=== PATIENT | male | born 1950 | race Caucasian/White ===

== ENCOUNTER 2022-01-03 10:17 | Emergency (ER) | payer MEDICARE ==
[2022-01-03] MEDS ORDERED: Zofran 4 MG/2 ML VIAL IV ONE (10:31)
[2022-01-03 10:45] LABS: Absolute Neutrophil Ct (ANC) 9.13 x10^3/uL (1.4-6.9); Basophil (Absolute #) 0.02 x10^3/uL (0-0.4); Eosinophil (Absolute #) 0 x10^3/uL (0-0.5); Hematocrit 32.6 % (42-50); Hemoglobin 10.3 g/dL (12.5-18.0); Lymphocyte (Absolute #) 0.55 x10^3/uL (1.0-4.6); Lymphocytes % 5.3 % (24.0-44.0); Mean Cell Volume 90.3 fL (78-100); Mean Corpuscular Hemoglobin 28.5 pg (26-32); Mean Corpuscular Hgb Concent. 31.6 g/dL (32-36); Mean Platelet Volume 12.7 fL (7.5-11.0); Monocyte (Absolute #) 0.39 x10^3/uL (0.0-1.3); Monocytes % 3.8 % (0.0-12.0); Neutrophil % 88.6 % (36.0-66.0); Platelet Count 111 x10^3/uL (150-450); Red Blood Count 3.61 x10^6/uL (4.1-5.6); Red Cell Distribution Width 17.2 % (11.5-14.0); White Blood Count 10.3 x10^3/uL (4.0-10.5)
[2022-01-03 10:58] LABS: ALBUMIN 3.1 g/dL (3.5-5.0); ANION GAP 14.9 MEQ/L (5-15); BILIRUBIN,TOTAL 1.3 mg/dL (0.2-1.3); Calcium 8.6 mg/dL (8.4-10.2); Creatinine 1 2.01 mg/dL (0.66-1.25); EST GLOMERULAR FILTRATION RATE 35.2 ML/MIN; Potassium 4.8 mmol/L (3.5-5.1); Total Protein 7.7 g/dL (6.3-8.2)
[2022-01-03 10:59] LABS: INR 1.3 (0.8-3.0); PROTIME 13.5 SECONDS (9.4-12.5); PTT 34.7 SECONDS (25.1-36.5)
[2022-01-03] MEDS ORDERED: Zofran 4 MG/2 ML VIAL ONE (11:02)
[2022-01-03] MEDS ORDERED: Sodium Chloride 0.9% 500 ML 500 ML IV ONE ×2 (11:04→11:05)
[2022-01-03 11:20] LABS: INFLUENZA A NEGATIVE (NEGATIVE); INFLUENZA B NEGATIVE (NEGATIVE); RESPIRATORY SYNCTIAL VIRUS NEGATIVE (Negative); SARS-CoV-2 Xpert Express NEGATIVE (NEGATIVE)
[2022-01-03 11:25] LABS: Appearance CLOUDY (CLEAR); Bilirubin NEGATIVE (NEGATIVE); Dipstick done @ ? MAIN LAB; Glucose NEGATIVE (NEGATIVE); Ketones NEGATIVE (NEGATIVE); Nitrite NEGATIVE (NEGATIVE); Ph 5.5 (5-6); Protein,Urine Dip >=300 (Negative); RBC MODERATE Ery/ul (0-5); Urobilinogen 1 mg/dL (0-1)
[2022-01-03] MEDS ORDERED: TYLENOL EXTRA STRENGTH 500 MG PO ONE (11:30)
[2022-01-03] MEDS ORDERED: TYLENOL SUSPENSION 160 MG/5 ML ONE (11:31)
[2022-01-03 11:39] LABS: Bacteria MODERATE /HPF (NEGATIVE); Epithelial Cells RARE /HPF (FEW); Mucus SLIGHT /HPF (NEGATIVE); WBC >100 /HPF (0-5)
[2022-01-03 11:43] LABS: Urine Cultured Indicated? YES
[2022-01-03] MEDS ORDERED: TYLENOL SUSPENSION 160 MG/5 ML PO ONE (11:44)
[2022-01-03] MEDS ORDERED: Sodium Chloride 0.9% 1000 ML 1,000 ML ONE ×5 (11:49→15:09)
[2022-01-03] MEDS ORDERED: Sodium Chloride 0.9% 1000 ML 1,000 ML IV STA ×4 (11:49→14:46)
[2022-01-03] MEDS ORDERED: PIPERACILLIN/TAZOBACTAM 3.375 GM in Sodium Chloride 100ML MINI-BAG PLUS 100 ML IV ONE (11:50)
[2022-01-03] MEDS ORDERED: PIPERACILLIN/TAZOBACTAM IV ONE (11:51)
[2022-01-03] MEDS ORDERED: Sodium Chloride 100ML MINI-BAG PLUS 100 ML IV ONE (11:51)
--- NOTE | 2022-01-03 12:07 | ERPHSYRPT ---
- History of Present Illness Source: patient, EMS Exam Limitations: other (Pt w advanced dementia and poor report from NH) Physician History: 71 yo wm from [place] w 2 day h/o N/V/D/R sided facial droop. NH history is very poor, and pt is oriented x0. Pt is febrile upon arrival, alert, oriented x0, and has a great airway. Timing/Duration: other (2 days) Severity: moderate Modifying Factors: Improves With: nothing Associated Symptoms: nausea, vomiting, malaise, rash, weakness, No shortness of breath, No heartburn, No diaphoresis, No cough, No chills, No chest pain, No fever, No headaches, No loss of appetite, No syncope, No seizure Allergies/Adverse Reactions: No Known Drug Allergies Allergy (Unverified 01/03/22 11:44) Home Medications: Amino Acids/Protein Hydrolys [Provide Gold Regular Liquid] 30 ml PO DAILY 01/03/22 [History] Apixaban [Eliquis 5 mg Tablet] 1 ea BID 01/03/22 [History] Donepezil HCl 1 ea DAILY 01/03/22 [History] Furosemide 40 mg [Lasix 40 MG] 40 mg PO DAILY 01/03/22 [History] Insulin Aspart [Novolog] 100 unit SQ AC 01/03/22 [History] Insulin Detemir [Levemir] 66 units DAILY 01/03/22 [History] Magnesium Hydroxide 30 ml [Milk of Magnesia 30 ml] 30 ml PO DAILY 01/03/22 [History] Memantine HCl 10 mg PO BID 01/03/22 [History] Metoprolol Succinate 25 mg Xl* [Toprol-Xl 25MG Tablets] 1 ea BID 01/03/22 [History] Multivitamin [Multi-Vitamin Daily] 1 ea DAILY 01/03/22 [History] Omeprazole 1 ea BID 01/03/22 [History] Ondansetron [Ondansetron Odt] 1 ea Q4-6HPRN PRN 01/03/22 [History] Phenol [Oral Relief] 177 ml MM Q4HWA 01/03/22 [History] Potassium Chloride 10 meq PO BID 01/03/22 [History] Sertraline HCl [Zoloft] 1 ea DAILY 01/03/22 [History] Zinc Oxide [Diaper Rash Ointment] 56 gm TP BID 01/03/22 [History] - Review of Systems All Other Systems: Unable due to dementia - Past Medical History Neurological History: Alzheimer's Disease Cardiac History: Arrhythmia, Congestive Heart Failure, Hypertension Respiratory History: COPD Endocrine Medical History: Diabetes Type II GI Medical History: GERD History: Renal Disease Psycho-Social History: Depression, Other Other Medical History: quamous cell skin ca,schizo - Past Surgical History Past Surgical History: Yes Cardiac: Cardiac Catheterization, Pacemaker - Social History Drug Use: none Significant Family History: no pertinent family hx - Nursing Vital Signs Nursing Vital Signs: Initial Vital Signs Temperature 100.5 F 01/03/22 10:20 Pulse Rate 87 01/03/22 10:20 Respiratory Rate 28 H 01/03/22 10:20 Blood Pressure 102/51 01/03/22 10:20 O2 Sat by Pulse Oximetry 93 L 01/03/22 10:20 Pain Scale Pain Intensity 4 Febrile/Borderline sats/Mildly tachyneic - Physical Exam General Appearance: mild distress Eye Exam: PERRL/EOMI, eyes nml inspection Ears, Nose, Throat Exam: normal ENT inspection, TMs normal, tonsillar exudate Neck Exam: normal inspection, non-tender, supple, No meningismus, No mass, No Brudzinski, No Kernig's Respiratory Exam: crackles/rales (Rales R base >L base) Cardiovascular Exam: regular rate/rhythm, normal heart sounds, murmur (2/6 RHONDA) Gastrointestinal/Abdomen Exam: soft, normal bowel sounds, No tenderness Back Exam: normal inspection, normal range of motion Extremity Exam: normal range of motion, pelvis stable Neurologic Exam: alert, cooperative, 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, depressed mood/affect, facial droop (R facial droop), No oriented x 3 Skin Exam: normal color, warm, other (Multiple excoriated lesions on dorsal forearms) SpO2 Interpretation: normal SpO2: 95 O2 Delivery: Room Air - Course Nursing assessment & vital signs reviewed: Yes EKG Interpreted by Me: RATE (Paced/rate 93/IVCD) - CT Exams Head CT Interpretation: Tele-radiologist Report (Nothing acute) Chest CT Interpretation: Tele-radiologist Report (R pleural effusion/minimal L pleural effusion/RLL atelectasis vs pneumonia) Abdomen/Pelvis CT Interpretation: Tele-radiologist Report (Possible portal vein thrombosis/cirrhotic) Ordered Tests: Active Orders 24 hr Category Date Time Status EKG-ER Only STAT Care 01/03/22 10:24 Completed IV Insertion-2nd Peripheral STAT Care 01/03/22 13:54 Completed Oxygen-ED Only Nasal Cannula 2 lpm Care 01/03/22 14:56 Completed ABDOMEN AND PELVIS W/0 CONTRAS [CT] Stat Exams 01/03/22 14:28 Taken CHEST WITHOUT CONTRAST [CT] Stat Exams 01/03/22 10:33 Taken HEAD WITHOUT CONTRAST [CT] Stat Exams 01/03/22 11:07 Taken BLOOD CULTURE Stat Lab 01/03/22 10:21 Received CBC W DIFF Stat Lab 01/03/22 10:45 Completed CMP Stat Lab 01/03/22 10:45 Completed CULTURE,URINE Stat Lab 01/03/22 10:57 Received Lactic Acid Stat Lab 01/03/22 10:39 Completed Lactic Acid Stat Lab 01/03/22 12:40 Completed PROTIME WITH INR Stat Lab 01/03/22 10:45 Completed PTT Stat Lab 01/03/22 10:45 Completed TROPONIN Q4H Lab 01/03/22 10:45 Completed TROPONIN Q4H Lab 01/03/22 13:34 Completed UA W/RFX CULTURE Stat Lab 01/03/22 10:57 Completed Medication Summary Discontinued Medications Generic Name Dose Route Start Last Admin Trade Name Freq PRN Reason Stop Dose Admin Acetaminophen 1,000 mg 01/03/22 11:30 01/03/22 11:46 Acetaminophen 500 Mg Tablet PO 01/03/22 11:31 Not Given STAT ONE Acetaminophen Confirm 01/03/22 11:31 Acetaminophen 160 Mg/5 Ml Bottle Administered 01/03/22 11:32 Dose 160 mg .ROUTE .STK-MED ONE Acetaminophen 1,000 mg 01/03/22 11:44 01/03/22 11:45 Acetaminophen 160 Mg/5 Ml Bottle PO 01/03/22 11:45 1,000 mg STAT ONE Administration Sodium Chloride 500 mls @ 500 mls/hr 01/03/22 11:04 01/03/22 12:06 Sodium Chloride 0.9% 500 Ml IV 01/03/22 12:03 Infused .Q1H ONE Infusion Sodium Chloride Confirm 01/03/22 11:05 Sodium Chloride 0.9% 500 Ml Administered 01/03/22 11:06 Dose 500 mls @ ud IV .STK-MED ONE Sodium Chloride 1,000 mls @ 999 mls/hr 01/03/22 11:49 01/03/22 13:14 Sodium Chloride 0.9% 1000 Ml IV 01/03/22 12:49 Infused .Q1H1M STA Infusion Piperacillin Sod/Tazobactam 100 mls @ 200 mls/hr 01/03/22 11:50 01/03/22 11:52 Sod 3.375 gm/ Sodium Chloride IV 01/03/22 12:19 200 mls/hr STAT ONE Administration Sodium Chloride Confirm 01/03/22 11:49 Sodium Chloride 0.9% 1000 Ml Administered 01/03/22 11:50 Dose 1,000 mls @ ud .ROUTE .STK-MED ONE Sodium Chloride Confirm 01/03/22 11:51 Sodium Chloride 100ml Mini-Bag Plus Administered 01/03/22 11:52 Dose 100 mls @ ud IV .STK-MED ONE Sodium Chloride 1,000 mls @ 999 mls/hr 01/03/22 13:49 01/03/22 14:45 Sodium Chloride 0.9% 1000 Ml IV 01/03/22 14:49 Infused .Q1H1M STA Infusion Vancomycin HCl 1 gm in 200 mls @ 125 mls/hr 01/03/22 13:50 01/03/22 15:33 Vancomycin 1 Gram/200 Ml Bag IV 01/03/22 15:25 Infused STAT ONE Infusion Sodium Chloride Confirm 01/03/22 13:48 Sodium Chloride 0.9% 1000 Ml Administered 01/03/22 13:49 Dose 1,000 mls @ ud .ROUTE .STK-MED ONE Vancomycin HCl Confirm 01/03/22 13:50 Vancomycin 1 Gram/200 Ml Bag Administered 01/03/22 13:51 Dose 1 gm in 200 mls @ ud IV .STK-MED ONE Sodium Chloride Confirm 01/03/22 14:21 Sodium Chloride 0.9% 1000 Ml Administered 01/03/22 14:22 Dose 1,000 mls @ ud .ROUTE .STK-MED ONE Sodium Chloride 1,000 mls @ 999 mls/hr 01/03/22 14:23 01/03/22 15:42 Sodium Chloride 0.9% 1000 Ml IV 01/03/22 15:23 Infused .Q1H1M STA Infusion Norepinephrine/Dextrose Confirm 01/03/22 14:41 Norepinephrine 8 Mg/250 Ml-D5w Administered 01/03/22 14:42 Dose 8 mg in 250 mls @ ud IV .STK-MED ONE Norepinephrine/Dextrose 8 mg in 250 mls @ 15 mls/hr 01/03/22 14:41 01/03/22 15:15 Norepinephrine 8 Mg/250 Ml-D5w IV 02/02/22 14:40 12 mcg/min .[id number] PRN 22.5 mls/hr HYPOTENSION Titration Protocol 8 MCG/MIN Sodium Chloride 1,000 mls @ 999 mls/hr 01/03/22 14:46 01/03/22 15:36 Sodium Chloride 0.9% 1000 Ml IV 01/03/22 15:46 Infused .Q1H1M STA Infusion Sodium Chloride Confirm 01/03/22 14:45 Sodium Chloride 0.9% 1000 Ml Administered 01/03/22 14:46 Dose 1,000 mls @ ud .ROUTE .STK-MED ONE Sodium Chloride Confirm 01/03/22 15:09 Sodium Chloride 0.9% 1000 Ml Administered 01/03/22 15:10 Dose 1,000 mls @ ud .ROUTE .STK-MED ONE Sodium Chloride 1,000 mls @ 125 mls/hr 01/03/22 15:30 01/03/22 15:23 Sodium Chloride 0.9% 1000 Ml IV 02/02/22 15:29 125 mls/hr .Q8H YANE Administration Ondansetron HCl 4 mg 01/03/22 10:31 01/03/22 11:04 Ondansetron Hcl 4 Mg/2 Ml Vial IV 01/03/22 10:32 4 mg STAT ONE Administration Ondansetron HCl Confirm 01/03/22 11:02 Ondansetron Hcl 4 Mg/2 Ml Vial Administered 01/03/22 11:03 Dose 4 mg .ROUTE .STK-MED ONE Piperacillin Sod/Tazobactam Sod Confirm 01/03/22 11:51 Piperacillin/Tazobactam Sodium 3.375 Gm Vial Administered 01/03/22 11:52 Dose 3.375 gm IV .STK-MED ONE Lab/Rad Data: Laboratory Result Diagrams 01/03/22 10:45 01/03/22 10:45 Laboratory Results 01/03/22 01/03/22 01/03/22 Range/Units 13:34 12:40 10:57 WBC (4.0-10.5) x10^3/uL RBC (4.1-5.6) x10^6/uL Hgb (12.5-18.0) g/dL Hct (42-50) % MCV (78-100) fL MCH (26-32) pg MCHC (32-36) g/dL RDW (11.5-14.0) % Plt Count (150-450) x10^3/uL MPV (7.5-11.0) fL Gran % (36.0-66.0) % Immature Gran % (Auto) (0.00-0.4) % Nucleat RBC Rel Count (0.00-0.1) % Eos # (Auto) (0-0.5) x10^3/uL Immature Gran # (Auto) (0.00-0.03) x10^3u/L Absolute Lymphs (auto) (1.0-4.6) x10^3/uL Absolute Monos (auto) (0.0-1.3) x10^3/uL Absolute Nucleated RBC (0.00-0.01) x10^3u/L Lymphocytes % (24.0-44.0) % Monocytes % (0.0-12.0) % Eosinophils % (0.00-5.0) % Basophils % (0.0-0.4) % Absolute Granulocytes (1.4-6.9) x10^3/uL Basophils # (0-0.4) x10^3/uL PT (9.4-12.5) SECONDS INR (0.8-3.0) APTT (25.1-36.5) SECONDS Sodium (137-145) mmol/L Potassium (3.5-5.1) mmol/L Chloride (98-107) mmol/L Carbon Dioxide (22-30) mmol/L Anion Gap (5-15) MEQ/L BUN (9-20) mg/dL Creatinine (0.66-1.25) mg/dL Estimated GFR ML/MIN Glucose (74-106) mg/dL Lactic Acid 5.6 H (0.4-2.0) Calcium (8.4-10.2) mg/dL Total Bilirubin (0.2-1.3) mg/dL AST (17-59) U/L ALT (0-50) U/L Alkaline Phosphatase (38-126) U/L Troponin I 0.251 H* (0.000-0.034) ng/mL Serum Total Protein (6.3-8.2) g/dL Albumin (3.5-5.0) g/dL Urinalys Dipstick Clnc MAIN LAB Urine Color YELLOW (YELLOW) Urine Appearance CLOUDY (CLEAR) Urine pH 5.5 (5-6) Ur Specific [place] 1.020 (1.005-1.025) POC Urine Protein Conf >=300 (Negative) Urine Ketones NEGATIVE (NEGATIVE) Urine Nitrite NEGATIVE (NEGATIVE) Urine Bilirubin NEGATIVE (NEGATIVE) Urine Urobilinogen 1 (0-1) mg/dL Urine Leukocytes MODERATE (NEGATIVE) Urine WBC (Auto) >100 (0-5) /HPF Urine RBC (Auto) 11-15 (0-2) /HPF U Epithel Cells (Auto) RARE (FEW) /HPF Urine Bacteria (Auto) MODERATE (NEGATIVE) /HPF Urine RBC MODERATE (0-5) Ulises/ul Urine Mucus (Auto) SLIGHT (NEGATIVE) /HPF Ur Culture Indicated? YES Urine Glucose NEGATIVE (NEGATIVE) mg/dL Influenza Type A Ag (NEGATIVE) Influenza Type B Ag (NEGATIVE) RSV (PCR) (Negative) SARS-CoV-2 (PCR) (NEGATIVE) 01/03/22 01/03/22 01/03/22 Range/Units 10:45 10:45 10:45 WBC (4.0-10.5) x10^3/uL RBC (4.1-5.6) x10^6/uL Hgb (12.5-18.0) g/dL Hct (42-50) % MCV (78-100) fL MCH (26-32) pg MCHC (32-36) g/dL RDW (11.5-14.0) % Plt Count (150-450) x10^3/uL MPV (7.5-11.0) fL Gran % (36.0-66.0) % Immature Gran % (Auto) (0.00-0.4) % Nucleat RBC Rel Count (0.00-0.1) % Eos # (Auto) (0-0.5) x10^3/uL Immature Gran # (Auto) (0.00-0.03) x10^3u/L Absolute Lymphs (auto) (1.0-4.6) x10^3/uL Absolute Monos (auto) (0.0-1.3) x10^3/uL Absolute Nucleated RBC (0.00-0.01) x10^3u/L Lymphocytes % (24.0-44.0) % Monocytes % (0.0-12.0) % Eosinophils % (0.00-5.0) % Basophils % (0.0-0.4) % Absolute Granulocytes (1.4-6.9) x10^3/uL Basophils # (0-0.4) x10^3/uL PT 13.5 H (9.4-12.5) SECONDS INR 1.30 (0.8-3.0) APTT 34.7 (25.1-36.5) SECONDS Sodium (137-145) mmol/L Potassium (3.5-5.1) mmol/L Chloride (98-107) mmol/L Carbon Dioxide (22-30) mmol/L Anion Gap (5-15) MEQ/L BUN (9-20) mg/dL Creatinine (0.66-1.25) mg/dL Estimated GFR ML/MIN Glucose (74-106) mg/dL Lactic Acid (0.4-2.0) Calcium (8.4-10.2) mg/dL Total Bilirubin (0.2-1.3) mg/dL AST (17-59) U/L ALT (0-50) U/L Alkaline Phosphatase (38-126) U/L Troponin I 0.246 H* (0.000-0.034) ng/mL Serum Total Protein (6.3-8.2) g/dL Albumin (3.5-5.0) g/dL Urinalys Dipstick Clnc Urine Color (YELLOW) Urine Appearance (CLEAR) Urine pH (5-6) Ur Specific [place] (1.005-1.025) POC Urine Protein Conf (Negative) Urine Ketones (NEGATIVE) Urine Nitrite (NEGATIVE) Urine Bilirubin (NEGATIVE) Urine Urobilinogen (0-1) mg/dL Urine Leukocytes (NEGATIVE) Urine WBC (Auto) (0-5) /HPF Urine RBC (Auto) (0-2) /HPF U Epithel Cells (Auto) (FEW) /HPF Urine Bacteria (Auto) (NEGATIVE) /HPF Urine RBC (0-5) Ulises/ul Urine Mucus (Auto) (NEGATIVE) /HPF Ur Culture Indicated? Urine Glucose (NEGATIVE) mg/dL Influenza Type A Ag NEGATIVE (NEGATIVE) Influenza Type B Ag NEGATIVE (NEGATIVE) RSV (PCR) NEGATIVE (Negative) SARS-CoV-2 (PCR) NEGATIVE (NEGATIVE) 01/03/22 01/03/22 01/03/22 Range/Units 10:45 10:45 10:39 WBC 10.3 (4.0-10.5) x10^3/uL RBC 3.61 L (4.1-5.6) x10^6/uL Hgb 10.3 L (12.5-18.0) g/dL Hct 32.6 L (42-50) % MCV 90.3 (78-100) fL MCH 28.5 (26-32) pg MCHC 31.6 L (32-36) g/dL RDW 17.2 H (11.5-14.0) % Plt Count 111 L (150-450) x10^3/uL MPV 12.7 H (7.5-11.0) fL Gran % 88.6 H (36.0-66.0) % Immature Gran % (Auto) 2.1 H (0.00-0.4) % Nucleat RBC Rel Count 0.0 (0.00-0.1) % Eos # (Auto) 0 (0-0.5) x10^3/uL Immature Gran # (Auto) 0.22 H (0.00-0.03) x10^3u/L Absolute Lymphs (auto) 0.55 L (1.0-4.6) x10^3/uL Absolute Monos (auto) 0.39 (0.0-1.3) x10^3/uL Absolute Nucleated RBC 0.00 (0.00-0.01) x10^3u/L Lymphocytes % 5.3 L (24.0-44.0) % Monocytes % 3.8 (0.0-12.0) % Eosinophils % 0.0 (0.00-5.0) % Basophils % 0.2 (0.0-0.4) % Absolute Granulocytes 9.13 H (1.4-6.9) x10^3/uL Basophils # 0.02 (0-0.4) x10^3/uL PT (9.4-12.5) SECONDS INR (0.8-3.0) APTT (25.1-36.5) SECONDS Sodium 134 L (137-145) mmol/L Potassium 4.8 (3.5-5.1) mmol/L Chloride 103 (98-107) mmol/L Carbon Dioxide 21 L (22-30) mmol/L Anion Gap 14.9 (5-15) MEQ/L BUN 49 H (9-20) mg/dL Creatinine 2.01 H (0.66-1.25) mg/dL Estimated GFR 35.2 ML/MIN Glucose 164 H (74-106) mg/dL Lactic Acid 4.1 H (0.4-2.0) Calcium 8.6 (8.4-10.2) mg/dL Total Bilirubin 1.30 (0.2-1.3) mg/dL AST 160 H (17-59) U/L ALT 59 H (0-50) U/L Alkaline Phosphatase 132 H (38-126) U/L Troponin I (0.000-0.034) ng/mL Serum Total Protein 7.7 (6.3-8.2) g/dL Albumin 3.1 L (3.5-5.0) g/dL Urinalys Dipstick Clnc Urine Color (YELLOW) Urine Appearance (CLEAR) Urine pH (5-6) Ur Specific [place] (1.005-1.025) POC Urine Protein Conf (Negative) Urine Ketones (NEGATIVE) Urine Nitrite (NEGATIVE) Urine Bilirubin (NEGATIVE) Urine Urobilinogen (0-1) mg/dL Urine Leukocytes (NEGATIVE) Urine WBC (Auto) (0-5) /HPF Urine RBC (Auto) (0-2) /HPF U Epithel Cells (Auto) (FEW) /HPF Urine Bacteria (Auto) (NEGATIVE) /HPF Urine RBC (0-5) Ulises/ul Urine Mucus (Auto) (NEGATIVE) /HPF Ur Culture Indicated? Urine Glucose (NEGATIVE) mg/dL Influenza Type A Ag (NEGATIVE) Influenza Type B Ag (NEGATIVE) RSV (PCR) (Negative) SARS-CoV-2 (PCR) (NEGATIVE) - Progress Progress Note: 01/03/22 14:16 01/03/22 15:58 Pt w obvious sepsis due to UTI/possible pneumonia NS fluid boluses started to meet 30ml/Kg sepsis protocol/Pt received 4500ml in total 3.375mg IV Zosyn after blood cultures Levophed drip started due to hypotensive to fluid boluses Vancomycin 1gm IV Dr. Velasco wants pt transferred due to facial droop/Elevated troponin/Renal failure Pt accepted by Dr. Ballard at [facility] Systolic BP>90 when EMS assumed care at time of transfer 01/03/22 16:13 CT ab-pelvis result slightly before discharge w possible portal vein thrombosis. Pt on Eliquis. Counseled pt/family regarding: lab results, diagnosis, need for follow-up, rad results - Departure Departure Disposition: Transfer Clinical Impression: UTI (urinary tract infection), Sepsis, Pneumonia, Renal failure, Elevated troponin, Portal vein thrombosis Condition: Critical Critical Care Time: Yes Critical Care Time(excluding separately billable procedures): Critical 135-164 mins Referrals: ENVIVE,ENVIVE [Primary Care Provider] - Follow up/PCP as directed
[2022-01-03] MEDS ORDERED: VANCOMYCIN 1 GRAM/200 ML BAG 1 GM/200 ML PIGGYBACK IV ONE ×2 (13:50)
[2022-01-03] MEDS ORDERED: NOREPINEPHRINE 8 MG/250 ML-D5W 8 MG/250 ML PLAST..BAG IV PRN (14:41)
[2022-01-03] MEDS ORDERED: NOREPINEPHRINE 8 MG/250 ML-D5W 8 MG/250 ML PLAST..BAG IV ONE (14:41)
[2022-01-03 14:58] VITALS: PULSE 76
[2022-01-03 15:08] VITALS: BP 94/58
[2022-01-03] MEDS ORDERED: Sodium Chloride 0.9% 1000 ML 1,000 ML IV SCH (15:30)
[2022-01-03 16:12] VITALS: O2SAT 95
--- NOTE | 2022-01-03 19:35 | XRAY ---
Indication: Right facial droop. Multiple contiguous axial images obtained through the head without contrast. Comparison: None Age-appropriate global atrophy, mild periventricular degenerative micro-ischemia bilaterally, and old right occipital lobe infarct. No acute intracranial hemorrhage, abnormal extra-axial fluid collection, or mass effect. Fourth ventricle is midline without hydrocephalus. Bony calvarium intact. Visualized paranasal sinuses and mastoid air cells are clear. Impression: Nonacute senile brain with old right occipital lobe infarct. Comment: Preliminary interpretation made by [facility]. No critical discrepancy.
--- NOTE | 2022-01-03 19:41 | XRAY ---
Indication: Fever, nausea, and vomiting. Multiple contiguous axial images obtained through the chest without contrast. Comparison: None Study degraded by respiration artifact throughout. Moderate right and tiny left effusions with right lung compressive atelectasis. Posterior right lower lobe demonstrates oval opacity measuring 4.1 x 6.1 cm in greatest axial dimension either round atelectasis versus consolidating airspace disease. Posterior right upper lobe demonstrates patchy airspace disease. 1.3 cm left upper lobe calcified granuloma. Heart not enlarged with left AICD. Aorta minimally arteriosclerotic without aneurysm. Tiny left hilar calcified nodes. No pathologic mediastinal lymphadenopathy. Bony thorax demonstrates osteopenia and flowing osteophytes throughout the spine. CT abdomen/pelvis reported separately. Impression: 1. Respiration artifact. 2. Posterior right upper lobe patchy airspace disease. Also posterior right lower lobe round atelectasis versus consolidating airspace disease. 3. Moderate right and tiny left effusions with right lung compressive atelectasis. 4. Incidental chronic bony findings and old granulomatous disease. Comment: Preliminary interpretation made by [facility]. No critical discrepancy.
--- NOTE | 2022-01-03 19:48 | XRAY ---
Indication: Fever, nausea, and vomiting. Multiple contiguous axial images obtained through the abdomen and pelvis without contrast. Comparison: None CT chest reported separately. Study slightly degraded by respiration artifact throughout. Noncontrasted stomach and bowel loops appear nonobstructed. Scattered descending and sigmoid diverticulosis without diverticulitis. Cirrhotic liver with tiny fluid along both colic gutters. Posterior right lobe liver demonstrate subtle 1.6 cm hypodense lesion. No walled off fluid collection or free air. Marked splenomegaly measuring 19.2 cm. Tiny hepatic/splenic aspect granulomas. Previous cholecystectomy. Ryder balloon catheter empties urinary bladder. Incidental bilateral penile implants. Remaining pancreas, adrenal glands, kidneys, and ureters are unremarkable for noncontrast exam. Mild scattered aortoiliac calcifications without AAA. Osseous structures intact with osteopenia, mild/moderate degenerative spondylosis throughout the thoracolumbar spine and bilateral L5 spondylolysis without listhesis. Impression: 1. Respiration artifact. 2. Cirrhotic liver with tiny ascites and marked splenomegaly. 3. Indeterminant 1.6 cm right lobe hypodense lesion. Outside comparison studies recommended if available. If not CT liver or MRI with contrast exam may yield further information. 4. Incidental colonic diverticulosis, arteriosclerotic disease, Ryder balloon catheter, bilateral penile implants, and chronic bony findings. Comment: Preliminary interpretation made by [facility]. No critical discrepancy.
== END 2022-01-03 15:35 | disposition short-term general hospital (02) ==
LOC: ED 10:17
DX: A41.9 Sepsis, unspecified organism (principal); N39.0 Urinary tract infection, site not specified; R65.20 Severe sepsis without septic shock; N17.9 Acute kidney failure, unspecified; J18.9 Pneumonia, unspecified organism; R77.8 Other specified abnormalities of plasma proteins; I81 Portal vein thrombosis; R11.2 Nausea with vomiting, unspecified; R19.7 Diarrhea, unspecified; R29.810 Facial weakness; I11.0 Hypertensive heart disease with heart failure; I50.9 Heart failure, unspecified; J44.9 Chronic obstructive pulmonary disease, unspecified; E11.9 Type 2 diabetes mellitus without complications; Z79.01 Long term (current) use of anticoagulants; Z79.4 Long term (current) use of insulin; Z79.899 Other long term (current) drug therapy; Z20.828 Contact with and (suspected) exposure to other viral communicable diseases
CPT/HCPCS: 0241U; 36000; 36415; 51702; 70450; 71250; 74176; 80053; 81015; 83605; 84484; 85025; 85610; 85730; 87040; 87086; 93005; 93041; 94760; 96361; 96365; 96367; 96368; 96374; 99285; 99291; J2405; A9270-GY; J3370

== ENCOUNTER 2022-01-26 10:46 | Emergency (ER) | payer MEDICARE ==
--- NOTE | 2022-01-26 11:01 | ERPHSYRPT ---
- History of Present Illness Time Seen by Provider: 01/26/22 10:54 Source: patient Exam Limitations: no limitations Physician History: EMS called to [facility] to transport a patient in cardiac arrest. Upon their arrival patient was pulseless. CPR initiated. Supraglottic airway applied. Per report patient is a hospice patient. However patient reportedly had second thoughts of hospice so the details regarding hospice were being worked out. Per report patient last seen normal at approximately 30 minutes prior to cardiac arrest. Family notified. Timing/Duration: today Severity: severe Modifying Factors: Improves With: nothing Associated Symptoms: other (Unresponsive. Therefore unable to verify associated symptoms) Allergies/Adverse Reactions: No Known Drug Allergies Allergy (Unverified 01/03/22 11:44) Home Medications: Amino Acids/Protein Hydrolys [Provide Gold Regular Liquid] 30 ml PO DAILY 12/15 06/06 [History] Apixaban [Eliquis 5 mg Tablet] 1 ea BID 01/03/22 [History] Donepezil HCl 1 ea DAILY 01/03/22 [History] Furosemide 40 mg [Lasix 40 MG] 40 mg PO DAILY 01/03/22 [History] Insulin Aspart [Novolog] 100 unit SQ AC 01/03/22 [History] Insulin Detemir [Levemir] 66 units DAILY 01/03/22 [History] Magnesium Hydroxide 30 ml [Milk of Magnesia 30 ml] 30 ml PO DAILY 01/03/22 [History] Memantine HCl 10 mg PO BID 01/03/22 [History] Metoprolol Succinate 25 mg Xl* [Toprol-Xl 25MG Tablets] 1 ea BID 01/03/22 [History] Multivitamin [Multi-Vitamin Daily] 1 ea DAILY 01/03/22 [History] Omeprazole 1 ea BID 01/03/22 [History] Ondansetron [Ondansetron Odt] 1 ea Q4-6HPRN PRN 01/03/22 [History] Phenol [Oral Relief] 177 ml MM Q4HWA 01/03/22 [History] Potassium Chloride 10 meq PO BID 01/03/22 [History] Sertraline HCl [Zoloft] 1 ea DAILY 01/03/22 [History] Zinc Oxide [Diaper Rash Ointment] 56 gm TP BID 01/03/22 [History] Hx Tetanus, Diphtheria Vaccination/Date Given: (unsure) Hx Influenza Vaccination/Date Given: (unsure) Hx Pneumococcal Vaccination/Date Given: (unsure) Travel Risk - Vaccine Status Have you recieved a Covid-19 vaccination: Yes Color Printer Operator: Unknown - Vaccination Dates Dates if Unknown: ? - Review of Systems All Other Systems: Unable due to condition - Past Medical History Neurological History: Alzheimer's Disease Cardiac History: Arrhythmia, Congestive Heart Failure, Hypertension Respiratory History: COPD Endocrine Medical History: Diabetes Type II GI Medical History: GERD History: Renal Disease Psycho-Social History: Depression, Other Other Medical History: quamous cell skin ca,schizo - Past Surgical History Past Surgical History: Yes Cardiac: Cardiac Catheterization, Pacemaker - Social History Smoking Status: Unknown if ever smoked Exposure to second hand smoke: No Drug Use: none Patient Lives Alone: No Significant Family History: no pertinent family hx - Nursing Vital Signs Nursing Vital Signs: Initial Vital Signs Pulse Rate 0 L 01/26/22 10:54 Respiratory Rate 0 L 01/26/22 10:54 - Physical Exam General Appearance: other (Unresponsive) Eye Exam: other (Pupils fixed dilated. No corneal reflex.) Ears, Nose, Throat Exam: normal ENT inspection, TMs normal, pharynx normal, moist mucous membranes Neck Exam: normal inspection Respiratory Exam: other (Patient with a supraglottic airway. Breath sounds equal bilaterally.) Cardiovascular Exam: other (Patient pulseless/PEA.) Gastrointestinal/Abdomen Exam: soft Back Exam: other (Unable to assess back at this time due to condition. Patient in cardiac arrest CPR in progress) Extremity Exam: other (2+ bilateral lower extremity pitting edema. No distal pulses observed. No signs of trauma) Neurologic Exam: other (Patient unresponsive) Skin Exam: other (Pale mottled skin) Lymphatic Exam: No adenopathy SpO2 Interpretation: airway management int. O2 Delivery: Ambu-Bag - Course Nursing assessment & vital signs reviewed: Yes Ordered Tests: Active Orders 24 hr Category Date Time Status Standby STAT RT 01/26/22 11:01 Completed - Progress Progress: unchanged Progress Note: Patient arrived in cardiac arrest. CPR in progress. Patient had a supraglottic airway. Ventilation oxygenation via [id number] patient unresponsive. Patient had no gag reflex during supraglottic airway administration. Patient has no corneal reflex. Patient's body is pale mottled. Chest compressions continued via Uzair machine. Respiratory therapy at bedside managing airway. Family notified the ED shortly thereafter that patient is not to be resuscitated. Resuscitation efforts discontinued. Patient declared at 1052. Time of 1052 Portions of this note were created with voice recognition technology. There may be grammatical, spelling, punctuation or sound alike errors 01/26/22 10:57 Counseled pt/family regarding: diagnosis - Departure Departure Disposition: Clinical Impression: Cardiovascular collapse, Cardiac arrest Condition: Critical Care Time: No Referrals: ENVIVE,ENVIVE [Primary Care Provider] - Follow up/PCP as directed
[2022-01-26 11:02] VITALS: PULSE 0
== END 2022-01-26 11:50 | disposition expired ==
LOC: ED 10:46
DX: I46.9 Cardiac arrest, cause unspecified (principal); R57.0 Cardiogenic shock
CPT/HCPCS: 94799; 99281